=== PATIENT | female | born 1985 | race Caucasian/White ===

== ENCOUNTER → 2017-02-06 | Outpatient (CLI) | payer MEDICAID ==
[~2017-02-06] MED LIST: ASPIR 8181 MG PO; LIPITOR80 MG PO; NAPROSYN500 MG PO; PLAVIX75 MG PO; ZOLOFT100 MG PO
== END | disposition disaster alternative care site (69) ==
LOC: GLAB 02-01 12:00 → GRAD 09:03
DX: I77.74 Dissection of vertebral artery (principal); J34.89 Other specified disorders of nose and nasal sinuses